=== PATIENT | male | born 1960 | race Caucasian/White ===

== ENCOUNTER → 2023-04-15 | Outpatient (CLI) | payer MEDICARE, OTHER | LOC: M RAD 09:10 | PROVIDERS: ATTEND Physician Assistant Medical | DX: I77.811 Abdominal aortic ectasia (principal) ==

== ENCOUNTER → 2025-01-28 | Outpatient (CLI) | payer OTHER | LOC: M RAD 07:47 | PROVIDERS: ATTEND Nurse Practitioner Family | DX: Z01.89 Encounter for other specified special examinations (principal) ==